=== PATIENT | male | born 1945 | race Two or more races ===

== ENCOUNTER 2019-08-20 20:32 | Emergency (ER) | payer MEDICARE, OTHER ==
[~2019-08-20] VITALS: Ht 182.9 cm; Wt 81.6 kg
--- NOTE | 2019-08-20 21:27 | NUR ---
pt refused TDAP
[2019-08-20] MEDS ORDERED: TDAP [DIPH/PERTUSSIS/TET] 0.5 ML VIAL IM ONE (21:30)
--- NOTE | 2019-08-20 22:54 | NUR ---
KENYETTA CERVANTES PAC AT THE BED SIDE
--- NOTE | 2019-08-20 23:31 | NUR ---
Patient discharged to home in stable condition. Rx and Written and verbal after care instructions given. Patient verbalizes understanding of instruction.
[2019-08-20 23:32] VITALS: BP 148/82
== END 2019-08-20 23:32 | disposition home or self-care (01) ==
LOC: ER 20:35
DX: S02.2XXA Fracture of nasal bones, initial encounter for closed fracture (principal); S01.21XA Laceration without foreign body of nose, initial encounter; R51 Headache; W01.0XXA Fall on same level from slipping, tripping and stumbling without subsequent striking against object, initial encounter; Y93.89 Activity, other specified; Y92.481 Parking lot as the place of occurrence of the external cause; Y99.8 Other external cause status
CPT/HCPCS: 70450-TC; 70486-TC